=== PATIENT | male | born 1995 | race Caucasian/White ===

== ENCOUNTER 2017-11-22 14:26 | Emergency (ER) | payer OTHER ==
[~2017-11-22] VITALS: Ht 165.1 cm; Wt 93.0 kg
[~2017-11-22 14:26] MED LIST: AMOXICILLIN500 M1 PO; AURALGAN OTIC S14 ML OT; NOHOMEMEDICATIONS
[2017-11-22 14:34] VITALS: BP 138/80
[2017-11-23] MEDS ORDERED: NAPROSYN500 MG PO (00:37)
[2017-11-23] MEDS ORDERED: CYCLOBENZAPRINE5 MG PO (00:37)
== END 2017-11-22 15:17 | disposition left against medical advice (07) ==
LOC: M.ERS 14:26
DX: Z53.21 Procedure and treatment not carried out due to patient leaving prior to being seen by health care provider (principal)

== ENCOUNTER 2017-11-23 00:02 | Emergency (ER) | payer MEDICAID ==
[~2017-11-23] VITALS: Ht 165.1 cm; Wt 72.6 kg
[2017-11-23] MEDS ORDERED: CYCLOBENZAPRINE5 MG PO (00:37)
[2017-11-23] MEDS ORDERED: NAPROSYN500 MG PO (00:37)
[2017-11-23 01:03] VITALS: BP 111/76
== END 2017-11-23 01:03 | disposition home or self-care (01) ==
LOC: M.ERS 00:02
DX: M25.512 Pain in left shoulder (principal); M54.12 Radiculopathy, cervical region; F17.200 Nicotine dependence, unspecified, uncomplicated; Z88.2 Allergy status to sulfonamides; Z88.1 Allergy status to other antibiotic agents

== ENCOUNTER 2017-12-06 12:32 | Emergency (ER) | payer MEDICAID ==
[~2017-12-06] VITALS: Ht 165.1 cm; Wt 93.0 kg
[~2017-12-06 12:32] MED LIST changes: +CYCLOBENZAPRINE5 MG PO; +NAPROSYN500 MG PO
[2017-12-06 13:19] LABS: ABSOLUTE BASOPHILS 0.1 thou/uL (0.0-0.2); ABSOLUTE EOSINOPHILS 0.6 thou/uL (0.0-0.7); ABSOLUTE LYMPHOCYTES 2.9 thou/uL (0.8-5.3); ABSOLUTE MONOCYTES 0.9 thou/uL (0.0-1.2); ABSOLUTE NEUTROPHILS 7.2 thou/uL (1.6-8.1); BASOPHILS 0.8 %; EOSINOPHILS 5.4 %; HEMATOCRIT 44.5 % (42.0-52.0); HEMOGLOBIN 15.4 gm/dL (14.0-18.0); LYMPHOCYTES 24.8 %; MCH 30.5 pg (26.0-34.0); MCHC 34.5 g/dL (28.0-37.0); MCV 88.4 fL (80.0-100.0); MONOCYTES 7.8 %; NUCLEATED RBCS 0 /100WBC; PLATELET COUNT* 301 thou/uL (150-400); POLYS 61.2 %; RBC 5.04 mil/uL (4.50-6.00); RDW-CV 12.8 % (10.5-14.5); WBC 11.8 thou/uL (4.0-11.0)
[2017-12-06 13:27] LABS: CALCIUM 8.6 mg/dL (8.5-10.1); POTASSIUM 3.4 mmol/L (3.5-5.1)
[2017-12-06 13:32] LABS: ALBUMIN 4.2 g/dL (3.4-5.0); TOTAL BILIRUBIN 0.8 mg/dL (<0.1-1.0); TOTAL PROTEIN 7.7 g/dL (6.4-8.2)
[2017-12-06] MEDS ORDERED: CARAFATE1 GM PO (16:21)
--- NOTE | 2017-12-06 16:24 | EKG ---
[place] [address] ELECTROCARDIOGRAM REPORT Name: RYLIE KILPATRICK Room: [facility]#: [id number] Admission: 12/06/17 Attend Phys: Discharge: Date of : [birth year] Report #: [id number] THIS REPORT FOR: //name// [facility] ED Test Date: 2017-12-06 Test Time: 14:26:46 Pat Name: RYILE KILPATRICK Department: Room: Gender: Client Support Administrator: : 1995 Requested By: Mich Hatch Order Number: [id number] MD: Gary Vickers Measurements Intervals [place] Rate: 85 P: 52 NV: 165 QRS: 48 QRSD: 89 T: 19 QT: 374 QTc: 445 Interpretive Statements Sinus rhythm No previous ECG available for comparison Electronically Signed On 12-06-2017 16:24:46 CDT by Gary Vickers [email or web address] <ELECTRONICALLY SIGNED> By: Gary Vickers MD, [facility] 12/06/17 1624 1426 1426 Gary Vickers MD, FACC /EPI
[2017-12-06 17:00] VITALS: BP 118/85
== END 2017-12-06 17:01 | disposition home or self-care (01) ==
LOC: M.ERS 12:32
DX: R10.13 Epigastric pain (principal); R11.10 Vomiting, unspecified; F17.210 Nicotine dependence, cigarettes, uncomplicated; Z88.1 Allergy status to other antibiotic agents; Z88.2 Allergy status to sulfonamides